=== PATIENT | female | born 1960 | race Caucasian/White ===

== ENCOUNTER 2017-07-11 12:39 | Emergency (ER) | payer OTHER ==
--- NOTE | 2017-07-11 12:56 | ED Physician Documentation ---
Chest Pain - HISTORIAN Historian: patient - HPI Stated Complaint: chest pain Chief Complaint: Chest Pain Additional Information: Standing folding laundry, when she had stabbing right upper CP that lasted perhaps a minute, and radiated to left neck. Her heart was pounding, she was diaphoretic. No treatment attempted. Brought to ER. No HX heart problems. Had throat cancer 2016, treated with chemo and rtadiatio. Mratin TKR, Martin carpal tunnel , foot surgeries. Cholecystectomy. Onset: minutes (just prior to arrival) Timing: sudden onset Last known Well Date: 07/11/17 Last Known Well Time: 12:15 - ROS CONST: none - PAST HX NV risk factors: no pertinent history DVT/PE Risk Factors: none TAD/AAA risk factors: none Neuro deficit: none GI disease: none Lung disease: other (long time smoker, quit 2015) Allergies/Adverse Reactions: Allergies Allergy/AdvReac Type Severity Reaction Status Date / Time codeine Allergy Verified 07/22/14 16:31 Sulfa (Sulfonamide Allergy Verified 07/22/14 16:31 Antibiotics) Home Medications: Ambulatory Orders Medication Instructions Recorded Albuterol Sulfate [Ventolin Hfa] 2 puff IH Q6H 07/22/14 Cetirizine HCl [Zyrtec] 10 mg PO QDAY 07/22/14 Montelukast Sodium [Singulair] 10 mg PO QDAY 07/22/14 Bupropion HCl [Bupropion Xl] 150 mg PO BID u2 04/08/17 Dicyclomine HCl 20 mg PO QID u2 04/08/17 Fluticasone/Salmeterol [Advair 1 each IH DAILY 04/08/17 500-50 Diskus] Levothyroxine Sodium 88 mcg PO DAILY u2 04/08/17 Multivitamin [Multi-Vitamin Daily] 1 each PO DAILY u2 04/08/17 FLUoxetine HCL [Prozac] 10 mg PO QD 07/11/17 - SOCIAL HX Smoking History: quit greater than 1 year, cigarettes (up to 2+ PPD for 41 years ) - FAMILY HX Family HX: none (no signif) - VITAL SIGNS Vital Signs: Vital Signs Temp Pulse Resp BP Pulse Ox 122/66 07/22/14 21:11 - REVIEWED ASSESSMENTS Nursing Assessment Reviewed: Yes Vitals Reviewed: Yes Progress - Progress Progress: Labs, CXR, EKG, serial Troponin I's all reassuring, so outside sales account representative not called. ED Results Lab/Radiology - Orders Orders: ED Orders Category Date Time Status Continuous EKG monitoring Q1H Care 07/11/17 12:[address] IV Lock 1T Care 07/11/17 12:52 Ordered CHEST 2VIEW [RAD] Stat Exams 07/11/17 Ordered CBC/PLATELET/DIFF Routine Lab 07/11/17 Ordered CMP Routine Lab 07/11/17 Ordered LIPASE Stat Lab 07/11/17 Ordered TROPONIN I (cTnI) Stat Lab 07/11/17 Ordered UA [URINALYSIS] Routine Lab 07/11/17 Ordered EKG WITH COMPARISON Stat Ther 07/11/17 Ordered Chest Pain Physical Exam - EXAM General Appearance: alert, moderate distress (anxious/concerned) EENT: eye inspection normal, ENT inspection normal, pharynx normal (Mallampati 2 ), no nystagmus Neck: nml inspection Respiratory: no resp. distress, chest non-tender, nml breath sounds CVS: reg. rate & rhythm, no murmur, pulses equal (DP's 2+), other (no HJR) Abdomen: soft, normal bowel sounds, no distension, non-tender Skin: warm/dry, normal color, other (skin color changes ant tib's, L>R (2/2 skin cancer excisions/treatments)) Neuro: CN's nml as tested, motor nml, sensation nml, cognition normal Discharge Clincal Impression: Non-cardiac chest pain Referrals: Primary Doctor,No [Primary Care Provider] - 2 Days Condition: Good Disposition: 01 HOME, SELF-CARE Decision to Admit: NO Decision Time: 15:30
[2017-07-11 13:06] LABS: BASOPHILS % 0.3 (0.0-1.5); EOSINOPHILS % 1.4 % (0.0-6.8); MEAN CORPUSCULAR HEMOGLOBIN 30.5 pg (28.0-34.0); MEAN CORPUSCULAR VOLUME 89.8 fl (80.0-100.0); MONOCYTES % 7.6 % (0.0-11.0); NEUTROPHILS # 2.8 # k/uL (1.4-7.7)
[2017-07-11 13:16] LABS: eGFR (African) > 60; eGFR (Non-African) > 60
[2017-07-11] MEDS ORDERED: 0.9 % SODIUM CHLORIDE 1,000 ML IV ONE ×2 (13:20→13:21)
[2017-07-11 16:00] VITALS: BP 146/62
[2017-07-11 17:28] LABS: APPEARANCE,URINE CLEAR (CLEAR); COLOR,URINE YELLOW (YELLOW); OCCULT BLOOD,URINE NEGATIVE (NEGATIVE); UROBILINOGEN URINE 0.2 Eu (0.2-1.0)
--- NOTE | 2017-07-11 18:05 | Diagnostic Imaging Report ---
REMA BAKER [facility] [address] [facility] [address] [place] [address]. [id number] Report Submission Date: July 11, 2017 1:23:16 PM CDT Patient Study Name: MONICA SADLER Date: July 11, 2017 1:00:30 PM CDT Modality Type: DX Gender: F Description: CHEST : 60 Institution: [facility] Physician: REMA BAKER Examination: PA and lateral chest. History: SHARP CHEST PAIN RIGHT SIDE WITH BURNING SENSATION ON LEFT SIDE X 1 DAY (Hx) Comparison exam: None provided. Findings: PA lateral chest demonstrate a normal cardiac and mediastinal silhouette. No focal infiltrate. No blunting of the costophrenic margins. Osseous structures are appropriate for age. Impression: No acute pulmonary process. Electronically signed on July 11, 2017 1:23:16 PM CDT by: Gael MOY
== END 2017-07-11 15:37 | disposition home or self-care (01) ==
LOC: ED 12:39
DX: R07.9 Chest pain, unspecified (principal)
CPT/HCPCS: 71046; 80053; 81002; 83690; 84484; 85025; 93005; J7030; 96360; 96361; 99285; S1016

== ENCOUNTER 2018-02-26 16:49 | Observation (INO) | payer OTHER ==
[2018-02-26] MEDS ORDERED: 0.9 % SODIUM CHLORIDE 1,000 ML IV ONE (17:16)
--- NOTE | 2018-02-26 18:07 | ED Physician Documentation ---
General Adult - HISTORIAN Historian: patient - HPI Stated Complaint: Weakness, diarrhea 4 days Chief Complaint: Weakness Onset: days ago (6) Timing: still present Severity: mild Further Comments: yes (Started with GI flu this last week but states she had one day with vomiting and then diarrhea since and fever last few days. She has fatigue and weakness. She states she has a cold sore outbreak. she has tried OTC meds with mild relief of fever. No other pain.) Last known Well Code/Unknown Code: Unknown - ROS CONST: fever, weakness EYES/ENT: denies: sore throat, nasal drainage, nasal congestion CVS/RESP: shortness of breath. denies: chest pain, cough GI/: vomiting, diarrhea. denies: abdominal pain, problems urinating MS/SKIN/LYMPH: denies: rash NEURO/PSYCH: denies: headache - PAST HX Past History: other (hypothyroidism ) Immunizations: UTD Allergies/Adverse Reactions: Allergies Allergy/AdvReac Type Severity Reaction Status Date / Time codeine Allergy Verified 07/22/14 16:31 Sulfa (Sulfonamide Allergy Verified 07/22/14 16:31 Antibiotics) Home Medications: Ambulatory Orders Medication Instructions Recorded Albuterol Sulfate [Ventolin Hfa] 2 puff IH Q6H 07/22/14 Cetirizine HCl [Zyrtec] 10 mg PO QDAY 07/22/14 Montelukast Sodium [Singulair] 10 mg PO QDAY 07/22/14 Bupropion HCl [Bupropion Xl] 150 mg PO BID u2 04/08/17 Dicyclomine HCl 20 mg PO QID u2 04/08/17 Fluticasone/Salmeterol [Advair 1 each IH DAILY 04/08/17 500-50 Diskus] Levothyroxine Sodium 88 mcg PO DAILY u2 04/08/17 Multivitamin [Multi-Vitamin Daily] 1 each PO DAILY u2 04/08/17 FLUoxetine HCL [Prozac] 10 mg PO QD 07/11/17 - SOCIAL HX Smoking History: non-smoker Alcohol Use: none Drug Use: none - FAMILY HX Family History: No - VITAL SIGNS Vital Signs: Vital Signs Temp Pulse Resp BP Pulse Ox 100.3 F H 100 H 24 154/74 97 02/26/18 17:30 02/26/18 17:30 02/26/18 17:30 02/26/18 17:30 02/26/18 17:30 - REVIEWED ASSESSMENTS Nursing Assessment Reviewed: Yes Vitals Reviewed: Yes Progress - Progress Progress: 1830: discussed results with pt and daughter agreeable to overnight admission DG 1935: discussed results Dr Kc will admit observation and see how status is in the AM DG ED Results Lab/Radiology - Radiology Radiology Impressions: Chest, two views History: Cough and fever. Findings: Comparison is made to exam dated 07/11/2017. The heart size is normal. Right upper lobe consolidation is present most consistent with pneumonia. The left lung is clear. No pleural effusion or pneumothorax present. Impression: 1. Right upper lobe consolidation most consistent with pneumonia. Electronically signed on Feb 26, 2018 6:02:56 PM STOCK CHASER by: Armen Rivera - Orders Orders: ED Orders Category Date Time Status IV Started NOW Care 02/26/18 17:15 Active CHEST 2VIEW [RAD] Stat Exams 02/26/18 Ordered CBC/PLATELET/DIFF Stat Lab 02/26/18 17:31 Received CMP Stat Lab 02/26/18 17:31 Received INFLUENZA A&B Stat Lab 02/26/18 17:15 Ordered UA W/MICRO IF INDICATED Routine Lab 02/26/18 17:15 Ordered 0.9 % Sodium Chloride [Normal Saline] 1,000 ml Med 02/26/18 17:16 Active IV Q1H General Adult Physical Exam - PHYSICAL EXAM GENERAL APPEARANCE: no distress EENT: eye inspection normal, dry mucous membranes, other (several crusting sores on and around the mouth ) NECK: normal inspection RESPIRATORY: no resp distress, chest non-tender, wheezes (decreased right lobe exp wheezing noted ) CVS: reg rate & rhythm, heart sounds normal, no murmur ABDOMEN: soft, no distension, non-tender BACK: normal inspection SKIN: warm/dry, normal color EXTREMITIES: non-tender, normal range of motion, no evidence of injury, no edema NEURO: oriented X3 Discharge Clincal Impression: Pneumonia Qualifiers: Pneumonia type: due to unspecified organism Laterality: right Lung location: upper lobe of lung Qualified Code(s): J18.1 - Lobar pneumonia, unspecified organism Comments: Discussed admission with Dr Kc for observation and re check labs in am DG Condition: Fair Disposition: 09 ADMITTED INPATIENT Decision to Admit: [id number] Date of Decison to Admit: 02/26/18 Decision Time: 18:39
--- NOTE | 2018-02-26 18:21 | Diagnostic Imaging Report ---
LEW ARIAS [facility] [address] [facility] [address] [place], [place]. [address] Report Submission Date: Feb 26, 2018 6:02:56 PM DESIGN ARCHITECT Patient Study Name: MONICA SADLER Date: Feb 26, 2018 5:43:06 PM DESIGN ARCHITECT Modality Type: DX Gender: F Description: CHEST : 60 Institution: [facility] Physician: LEW ARIAS Chest, two views History: Cough and fever. Findings: Comparison is made to exam dated 07/11/2017. The heart size is normal. Right upper lobe consolidation is present most consistent with pneumonia. The left lung is clear. No pleural effusion or pneumothorax present. Impression: 1. Right upper lobe consolidation most consistent with pneumonia. Electronically signed on Feb 26, 2018 6:02:56 PM DESIGN ARCHITECT by: Armen Rivera [facility] HOSPITALLars
[2018-02-26] MEDS ORDERED: cefTRIAXone SODIUM 1 GM INJ IV ONE (18:32)
[2018-02-26] MEDS ORDERED: KETOROLAC TROMETHAMINE 30 MG/1ML VIAL IVP ONE (18:36)
[2018-02-26] MEDS ORDERED: 0.9 % SODIUM CHLORIDE 100 ML IV ONE (18:58)
[2018-02-26 19:44] VITALS: BMI 29.5
[2018-02-26] MEDS ORDERED: 0.9 % SODIUM CHLORIDE 250 ML IV ONE (19:50)
[2018-02-26] MEDS ORDERED: AZITHROMYCIN 500 MG VIAL IV ONE (19:50)
[2018-02-26] MEDS ORDERED: ACETAMINOPHEN 325 MG TABLET PO PRN (19:50)
[2018-02-26] MEDS: 0.9 % SODIUM CHLORIDE 1,000 ML IV SCH (20:00)
[2018-02-26] MEDS ORDERED: AZITHROMYCIN 500 MG in 0.9 % SODIUM CHLORIDE 250 ML IV SCH (20:00)
[2018-02-26] MEDS: methylPREDNISolone SOD SUCC 125 MG/2 ML VIAL IVP SCH (20:04)
[2018-02-26] MEDS: ACYCLOVIR 200 MG CAPSULE PO SCH (21:05)
[2018-02-26] MEDS: IPRATROPIUM/ALBUTEROL SULFATE 3 ML AMPUL.NEB NEB SCH (21:09)
[2018-02-27] MEDS: IPRATROPIUM/ALBUTEROL SULFATE 3 ML AMPUL.NEB NEB SCH ×3 (01:25→08:44)
[2018-02-27] MEDS: 0.9 % SODIUM CHLORIDE 1,000 ML IV SCH (05:13)
[2018-02-27 07:02] LABS: BASOPHILS % 0.5 (0.0-1.5); MEAN CORPUSCULAR HEMOGLOBIN 30.2 pg (28.0-34.0); MONOCYTES % 10.9 % (0.0-11.0); NEUTROPHILS # 12.7 # k/uL (1.4-7.7); eGFR (Non-African) > 60
[2018-02-27 07:14] LABS: APPEARANCE,URINE CLEAR (CLEAR); COLOR,URINE YELLOW (YELLOW); OCCULT BLOOD,URINE 2+ (NEGATIVE); UROBILINOGEN URINE 0.2 Eu (0.2-1.0)
[2018-02-27 07:45] LABS: BASOPHILS % 0.2 (0.0-1.5); EOSINOPHILS % 1.2 % (0.0-6.8); MEAN CORPUSCULAR HEMOGLOBIN 29.9 pg (28.0-34.0); NEUTROPHILS # 11.2 # k/uL (1.4-7.7)
[2018-02-27 08:05] LABS: eGFR (Non-African) > 60
[2018-02-27] MEDS ORDERED: POTASSIUM CHLORIDE 20 MEQ TABLET.ER PO ONE (08:15)
--- NOTE | 2018-02-27 08:34 | Discharge Summary ---
Discharge Summary - Discharge Sumary History of Present Illness: Patient presented to ED with cough and chest pain. Chest xray showed RML infiltrate. Sodium was 127. She was admitted for observation. Home Medications: Ambulatory Orders Medication Instructions Recorded Albuterol Sulfate [Ventolin Hfa] 2 puff IH Q6H 07/22/14 Cetirizine HCl [Zyrtec] 10 mg PO QDAY 07/22/14 Montelukast Sodium [Singulair] 10 mg PO QDAY 07/22/14 Bupropion HCl [Bupropion Xl] 150 mg PO BID u2 04/08/17 Dicyclomine HCl 20 mg PO QID u2 04/08/17 Fluticasone/Salmeterol [Advair 1 each IH DAILY 04/08/17 500-50 Diskus] Levothyroxine Sodium 88 mcg PO DAILY u2 04/08/17 Multivitamin [Multi-Vitamin Daily] 1 each PO DAILY u2 04/08/17 FLUoxetine HCL [Prozac] 10 mg PO QD 07/11/17 Levofloxacin [Levaquin] 750 mg PO DAILY #7 tablet 02/27/18 Allergies/Adverse Reactions: Allergies Allergy/AdvReac Type Severity Reaction Status Date / Time codeine Allergy Verified 07/22/14 16:31 Sulfa (Sulfonamide Allergy Verified 07/22/14 16:31 Antibiotics) Patient Problems: Current Active Problems Problem Status Onset Pneumonia Acute Discharge Summary: Patient was admitted from ER with RML pneumonia and hyponatremia. She was place on Rocephin and Azithromycin along with NS IVF. Patient improved overnight and was discharged the following morning on Levaquin 750mg daily x 7 days.
[2018-02-27] MEDS: methylPREDNISolone SOD SUCC 125 MG/2 ML VIAL IVP SCH (08:39)
[2018-02-27] MEDS: ACYCLOVIR 200 MG CAPSULE PO SCH (09:28)
[2018-02-27 10:27] VITALS: BP 136/60
--- NOTE | 2018-02-27 11:48 | Diagnostic Imaging Report ---
LEW ARIAS [facility] [address] [facility] [address] [place], [place]. [address] Report Submission Date: Feb 27, 2018 6:58:45 AM CHANNEL OPENER Patient Study Name: MONICA SADLER Date: Feb 27, 2018 6:24:28 AM CHANNEL OPENER Modality Type: DX Gender: F Description: CHEST : 60 Institution: [facility] Physician: LEW ARIAS PA and lateral chest Clinical history: Follow-up pneumonia. Findings: Examination of the chest in PA and lateral views with comparison to examination from the previous day demonstrates consolidating infiltrate right upper lobe without significant change. The left lung is clear. The cardiovascular and mediastinal silhouettes are stable. Impression: 1. Right upper lobe pneumonia without change. Electronically signed on Feb 27, 2018 6:58:45 AM CHANNEL OPENER by: Sony MOY
== END 2018-02-27 10:50 | disposition home or self-care (01) ==
LOC: ED 16:49 → SOUTH 18:46
PROVIDERS: ADMIT Nurse Practitioner Family; ATTEND Nurse Practitioner Family
DX: J18.9 Pneumonia, unspecified organism (principal); E87.1 Hypo-osmolality and hyponatremia
CPT/HCPCS: 71046; 80053; 81002; 85025; 87040; 87400; 96365; 96366; 96375; 99217; 99218; 99283; J0456; J0696; J1885; J2930; J7050; A9270; G0378; J7030; S1016

== ENCOUNTER 2018-06-02 10:56 | Outpatient (CLI) | payer MEDICARE, OTHER ==
--- NOTE | 2018-06-02 15:46 | Diagnostic Imaging Report ---
DI SMITH ([place]) - OP [facility] [address] [facility] [address] [place], [place]. [address] Report Submission Date: Jun 02, 2018 2:45:33 PM CDT Patient Study Name: MONICA SADLER Date: Jun 02, 2018 11:08:22 AM CDT Modality Type: DX Gender: F Description: ABD COMPLETE : 60 Institution: [facility] Physician: DI SMITH ([place]) - OP Examination: Obstruction series History: LARGE STOOLS, DIARRHEA, LOWER ABD PAIN X2-3 DAYS. HX OF GALLBLADDER REMOVAL. Findings: 3 views obtained of the abdomen. No abnormal dilation of the large or small bowel. Moderate stool throughout the large bowel. No suspicious calcification projecting over the renal fossa or the lower pelvic region. Surgical clips right upper quadrant. Osseous structures demonstrate osteopenia and degenerative changes. Impression: Moderate large bowel stool. No obstruction. Electronically signed on Jun 02, 2018 2:45:33 PM CDT by: Gael MOY
== END 2018-06-02 11:10 ==
LOC: RAD 10:56
PROVIDERS: ATTEND Nurse Practitioner Family
DX: K59.00 Constipation, unspecified (principal)
CPT/HCPCS: 74019

== ENCOUNTER 2018-06-06 15:17 | Outpatient (CLI) | payer OTHER ==
--- NOTE | 2018-06-06 15:51 | Diagnostic Imaging Report ---
DI SMITH ([place]) - OP [facility] [address] [facility].[address] [address] Report Submission Date: Jun 06, 2018 3:45:21 PM CDT Patient Study Name: MONICA SADLER Date: Jun 06, 2018 3:22:30 PM CDT Modality Type: DX Gender: F Description: ABDOMEN 1VIEW : 60 Institution: [facility] Physician: ID SMITH ([place]) - OP EXAMINATION: ABDOMEN 1VIEW HISTORY: CONSTIPATION. PLEASE NOTE AMOUNT OF STOOL SEEN IN COLON. (Hx) COMPARISON: 06/02/2018 FINDINGS: Cholecystectomy clips are noted. There are no abnormally dilated bowel loops. No significant stool burden is identified, decreased. No pathological calcification is seen. The lung bases are clear. The visible osseous structures are intact. IMPRESSION: No evidence of bowel obstruction. No significant stool burden identified. Electronically signed on Jun 06, 2018 3:45:21 PM CDT by: Dylan MOY
== END 2018-06-06 15:19 ==
LOC: RAD 15:17
PROVIDERS: ATTEND Nurse Practitioner Family
DX: K59.00 Constipation, unspecified (principal)
CPT/HCPCS: 74018

== ENCOUNTER 2018-07-24 12:11 | Day surgery (SDC) | payer OTHER ==
[~2018-07-24 12:11] MED LIST: LACTATED RINGERS 1,000 ML IV.SOLN IV ONE; LIDOCAINE HCL 2% PF 100MG/5ML VIAL IJ ONE; PROPOFOL 200 MG/20 ML VIAL IV ONE
--- NOTE | 2018-10-03 09:08 | GI Report ---
DATE OF PROCEDURE: 07/24/2018 REFERRING PHYSICIAN: LIA Matos. SURGEON: Ez Mendieta M.D., Abdirashid PROCEDURE PERFORMED: Colonoscopy and polypectomy. INDICATION FOR PROCEDURE: The patient has had change in bowel habits, family history of colorectal cancer. She denies blood in the stools. She is bothered with constipation. She has had previous cholecystectomy. PROCEDURE MEDICATION: Propofol, as per Anesthesia. DESCRIPTION OF PROCEDURE: The Olympus video colonoscope was advanced through the rectum. It was an atonic redundant colon and took some maneuvering to reach the cecum. The appendiceal orifice, ileocecal valve looked normal. On slow withdrawal, the ascending colon no obvious intraluminal lesions noted. In the transverse colon about mid transverse about 100 cm the patient has a flat polyp about 4 mm size which we took off with a cold snare in 2 pieces. In the descending colon a lot of redundancy but no obvious intraluminal lesions noted. Retroflexion of in the rectum was normal. The patient tolerated the procedure well. FINDINGS: 1. A very atonic redundant colon. 2. Transverse colon polyp removed. RECOMMENDATIONS: Would add Benefiber or MiraLAX daily since she is on a number of medications that can affect constipation. EZ MENDIETA M.D., Abdirashid YORK/henrik Job#: [id number] Cc: LIA Matos ] MTDD
== END 2018-07-24 15:50 ==
LOC: OPSURG 12:11
PROVIDERS: ATTEND Internal Medicine Gastroenterology
DX: K59.00 Constipation, unspecified (principal); D12.3 Benign neoplasm of transverse colon
CPT/HCPCS: 45385; 88305; J2001; J2704; J7120

== ENCOUNTER 2018-12-21 11:01 | Outpatient (CLI) | payer OTHER ==
[2018-12-21 11:41] LABS: eGFR (Non-African) 36
== END 2018-12-21 11:06 ==
LOC: LAB 11:01
PROVIDERS: ATTEND Nurse Practitioner Family
DX: N18.9 Chronic kidney disease, unspecified (principal)
CPT/HCPCS: 36415; 80053

== ENCOUNTER 2019-01-04 12:20 | Outpatient (CLI) | payer OTHER ==
[2019-01-04 13:10] LABS: eGFR (Non-African) 36
== END 2019-01-04 12:25 ==
LOC: LAB 12:20
PROVIDERS: ATTEND Nurse Practitioner Family
DX: R94.5 Abnormal results of liver function studies (principal)
CPT/HCPCS: 36415; 80053; 80074; 82105